=== PATIENT | female | born 1995 | race African-American/Black ===

== ENCOUNTER 2021-04-11 07:15 | Emergency (ER) | payer BC ==
[~2021-04-11] VITALS: Ht 160 cm; Wt 80.0 kg
[2021-04-11 08:05] VITALS: BP 138/100
[2021-04-11 09:36] LABS: KETONES URINE 2+ (NEGATIVE); LEUKOCYTE ESTERASE URINE TRACE (NEGATIVE); NITRITE URINE NEGATIVE (NEGATIVE); OCCULT BLOOD URINE 3+ (NEGATIVE); PH URINE 6.5 (4.5-8.0); PROTEIN URINE 3+ (NEGATIVE); SPECIFIC GRAVITY URINE 1.018 (1.005-1.030)
[2021-04-11 09:37] LABS: CLARITY URINE CLOUDY (CLEAR); COLOR URINE BLOODY (YELLOW)
[2021-04-11] MEDS ORDERED: ONDANSETRON 4MG ODT PO ONE (10:00)
[2021-04-11] MEDS ORDERED: NITROFURANTOIN 100MG M/M CAPSULE PO ONE (10:00)
[2021-04-11] MEDS ORDERED: NITR-87 MT (11:56)
== END 2021-04-11 12:08 | disposition home or self-care (01) ==
LOC: ER 08:01
DX: N39.0 Urinary tract infection, site not specified (principal); Z98.890 Other specified postprocedural states; Z88.0 Allergy status to penicillin; Z88.2 Allergy status to sulfonamides
CPT/HCPCS: 81003; 81025; 87077; 87086; 87186; 99283; Q0162; Z7610